=== PATIENT | female | born 1935 | race Caucasian/White ===

== ENCOUNTER → 2017-06-29 | Outpatient (CLI) | payer OTHER | LOC: CIMAGING 07:55 | PROVIDERS: ATTEND Family Medicine | DX: R11.0 Nausea (principal); R42 Dizziness and giddiness; K76.0 Fatty (change of) liver, not elsewhere classified; N28.1 Cyst of kidney, acquired; R93.422 Abnormal radiologic findings on diagnostic imaging of left kidney; Z87.42 Personal history of other diseases of the female genital tract; Z90.49 Acquired absence of other specified parts of digestive tract; Z90.710 Acquired absence of both cervix and uterus | CPT/HCPCS: 76700-PO; 76856-PO ==

== ENCOUNTER → 2017-07-06 | Outpatient (CLI) | payer OTHER | LOC: BRMIMAGING 09:36 | PROVIDERS: ATTEND Family Medicine | DX: R00.0 Tachycardia, unspecified (principal) | CPT/HCPCS: 71020-PO ==

== ENCOUNTER → 2018-01-15 | Outpatient (CLI) | payer OTHER | LOC: BRMIMAGING 11:24 | PROVIDERS: ATTEND Family Medicine | DX: N28.1 Cyst of kidney, acquired (principal) | CPT/HCPCS: 76770-PO ==

== ENCOUNTER → 2018-03-04 | Outpatient (CLI) | payer OTHER ==
[~2018-03-04] MED LIST: IOPAMIDOL (ISOVUE-300) 100 ML BTL ONE
== END ==
LOC: CIMAGING 10:30
PROVIDERS: ATTEND Specialist
DX: N28.1 Cyst of kidney, acquired (principal); N26.1 Atrophy of kidney (terminal); M48.061 Spinal stenosis, lumbar region without neurogenic claudication; M51.36 Other intervertebral disc degeneration, lumbar region; M41.82 Other forms of scoliosis, cervical region
CPT/HCPCS: 74178; Q9967